=== PATIENT | female | born 1950 | race Caucasian/White ===

== ENCOUNTER 2024-05-05 09:37 | Observation (INO) ==
[~2024-05-05 09:37] MED LIST: Metoclopramide 5 MG/ML VIAL (10 mg) IV PRN; NS 0.45% 1000 ml BAG 1,000 ML IV SCH; Naloxone 0.4 mg VIAL 0.4 mg/ml 1 ml VIAL IV PRN; Ondansetron 4 mg VIAL 2 MG/ML 2 ml VIAL IV PRN; fentaNYL 100 mcg/2 ml 50 MCG/ML VIAL IV PRN
[2024-05-05] MEDS ORDERED: Tranexamic Acid 1 GM/100ML BAG 2,000 MG/200 ML BAG IV ONE (11:13)
[2024-05-05] MEDS ORDERED: Scopolamine 1 mg/72hr PATCH ONE (11:13)
[2024-05-05] MEDS ORDERED: ceFAZolin 2 GM PREMIX 2 GM/50 ML BAG ONE (11:14)
[2024-05-05 11:16] LABS: Rapid COVID-19 Molecular Undetected (Undetected)
[2024-05-05] MEDS: Lactated Ringers 1000 ml BAG 1,000 ML IV SCH ×2 (11:25→18:18)
[2024-05-05] MEDS: Scopolamine 1 mg/72hr PATCH TRANSDERM ONE (11:25)
[2024-05-05] MEDS: Buffered Lidocaine 1% SYRIN 1 ml INTRADERM ONE (11:25)
[2024-05-05 11:41] LABS: Calcium 10.3 mg/dL (8.6-10.3); Creatinine, Serum 1.56 mg/dL (0.51-0.95); Potassium 3.5 mmol/L (3.5-5.0); eGFR CKD-EPI 34.7 (>60)
[2024-05-05] MEDS ORDERED: fentaNYL 100 mcg/2 ml 50 MCG/ML VIAL ONE (11:41)
[2024-05-05] MEDS ORDERED: Midazolam 2 mg/2 ml VIAL 1 mg/ml 2 ml VIAL (2 mg) ONE (11:41)
[2024-05-05] MEDS ORDERED: ROPIVACAINE 5 MG/ML 30 ML BTL (0.5%) ONE ×2 (11:47→12:07)
[2024-05-05] MEDS ORDERED: Magnesium Hydroxide LIQ 30 ML UDC PO PRN (15:24)
[2024-05-05] MEDS ORDERED: Ondansetron 4 mg VIAL 2 MG/ML 2 ml VIAL IV PRN (15:24)
[2024-05-05] MEDS ORDERED: Morphine 2 MG/ML SYRINGE IV PRN (15:24)
[2024-05-05] MEDS ORDERED: Lactulose 30 ml UDC PO PRN (15:24)
[2024-05-05] MEDS ORDERED: Calcium Carb (TUMS) 500 mg CHEW TAB PO PRN (15:24)
[2024-05-05] MEDS ORDERED: Ondansetron ODT 4 mg TAB 4 MG TAB PO PRN (15:24)
[2024-05-05] MEDS: Acetaminophen IV 1 GM/100ML 1,000 MG/100 ML BAG IV ONE (18:18)
[2024-05-05] MEDS: ceFAZolin 2 GM in NS PREMIX 2 GM/100 ML BAG IVPB SCH ×2 (18:18→23:10)
[2024-05-05] MEDS: Magnesium Hydroxide LIQ 30 ML UDC PO SCH (20:55)
[2024-05-06 05:51] LABS: Hematocrit 33.6 % (35-45); Hemoglobin 11.4 g/dL (11.5-14.3); Mean Platelet Volume 9.6 fL (7.5-11.2); Platelet Count 193 10^3/uL (150-450)
[2024-05-06 06:16] LABS: Creatinine, Serum 1.45 mg/dL (0.51-0.95); Potassium 3.6 mmol/L (3.5-5.0); eGFR CKD-EPI 37.9 (>60)
[2024-05-06] MEDS: Vitamin THERAPEUTIC TAB PO SCH (08:17)
[2024-05-06 10:52] VITALS: BP 106/64
== END 2024-05-06 13:23 | disposition home or self-care (01) ==
LOC: OR 09:37 → SSU 09:37
PROVIDERS: ADMIT Orthopaedic Surgery Adult Reconstructive Orthopaedic Surgery; ATTEND Orthopaedic Surgery Adult Reconstructive Orthopaedic Surgery